=== PATIENT | male | born 2000 | race Caucasian/White ===

== ENCOUNTER 2020-08-23 18:08 | Emergency (ER) | payer OTHER ==
[~2020-08-23] VITALS: Ht 188 cm; Wt 77.0 kg
[2020-08-23] MEDS ORDERED: ACETAMINOPHEN 325 MG TAB PO ONE (21:15)
--- OUTSIDE RECORDS SUMMARY | 2020-08-23 21:40 | CCD ---
Author Author [facility] Organization [facility] Address Unknown Phone Unavailable Support Name Relationship Address Phone [facility] Next Of Kin [address] [place] [address] Unavailable BRANDON BARTHOLOMEW Next Of Kin GENNYK GELACIO PATEL Re-disclosure Warning The records that you are about to access may contain information from federally-assisted alcohol or drug abuse programs. If such information is present, then the following federally mandated warning applies: This information has been disclosed to you from records protected by federal confidentiality rules (42 CFR part 2). The federal rules prohibit you from making any further disclosure of this information unless further disclosure is expressly permitted by the written consent of the person to whom it pertains or as otherwise permitted by 42 CFR part 2. A general authorization for the release of medical or other information is NOT sufficient for this purpose. The Federal rules restrict any use of the information to criminally investigate or prosecute any alcohol or drug abuse patient.The records that you are about to access may contain highly sensitive health information, the redisclosure of which is protected by Article 27-F of the [facility] Public Health law. If you continue you may have access to information: Regarding HIV / AIDS; Provided by facilities licensed or operated by the [facility] Office of Mental Health; or Provided by the [facility] Office for People With Developmental Disabilities. If such information is present, then the following [facility] mandated warning applies: This information has been disclosed to you from confidential records which are protected by state law. State law prohibits you from making any further disclosure of this information without the specific written consent of the person to whom it pertains, or as otherwise permitted by law. Any unauthorized further disclosure in violation of state law may result in a fine or fci sentence or both. A general authorization for the release of medical or other information is NOT sufficient authorization for further disc losure. Insurance Providers Payer name Policy type / Coverage type Policy ID Covered alliance party ID Covered alliance party's relationship to esparza Policy Esparza Plan Information [employer] [id number]
[2020-08-23 21:42] LABS: BASO % 0.4 % (0.0-1.0); EOS # 0.1 10^3/uL (0.0-0.5); EOS % 1.2 % (0.0-3.0); HEMATOCRIT 45.7 % (42.0-52.0); HEMOGLOBIN 15.1 g/dl (13.5-17.5); LYMPH # 1.9 10^3/uL (1.5-5.0); LYMPH % 22.2 % (24.0-44.0); MEAN CORPUSCULAR HEMOGLOBIN 29.2 pg (27.0-33.0); MEAN CORPUSCULAR VOLUME 88.4 fl (80.0-96.0); MONO # 0.9 10^3/uL (0.0-0.8); MONO % 10.4 % (2.0-8.0); NEUTROPHILS # 5.5 10^3/uL (1.5-8.5); NEUTROPHILS % 65.7 % (36.0-66.0); PLATELET COUNT, AUTOMATED 277 10^3/uL (150-450); RED BLOOD COUNT 5.17 10^6/uL (4.30-6.10); WHITE BLOOD COUNT 8.4 10^3/uL (4.0-10.0)
--- NOTE | 2020-08-23 22:06 | REPVR ---
PROCEDURE INFORMATION: Exam: XR Chest, 2 Views Exam date and time: 08/23/2020 9:24 PM Age: 20 years old Clinical indication: Cough and dyspnea; Additional info: Dyspnea/cough TECHNIQUE: Imaging protocol: XR of the chest Views: 2 views. COMPARISON: No relevant prior studies available. FINDINGS: Lungs: Unremarkable. No consolidation. Pleural spaces: Unremarkable. No pleural effusion. No pneumothorax. Heart/Mediastinum: Unremarkable. No cardiomegaly. Bones/joints: Unremarkable. IMPRESSION: No acute findings. Electronically signed by: Henry Fritz On 08/23/2020 22:07:04 PM
[2020-08-23 22:08] LABS: BLOOD UREA NITROGEN 9 MG/DL (7-18); CALCIUM LEVEL 9.6 MG/DL (8.5-10.1); CARBON DIOXIDE LEVEL 28 MEQ/L (21-32); CHLORIDE LEVEL 104 MEQ/L (98-107); CREATININE FOR GFR 1.01 MG/DL (0.70-1.30); GLUCOSE, FASTING 85 MG/DL (70-100); POTASSIUM SERUM 3.8 MEQ/L (3.5-5.1); SODIUM LEVEL 140 MEQ/L (136-145)
[2020-08-23] MEDS ORDERED: CLAR10CA3 PO (22:17)
[2020-08-23] MEDS ORDERED: IBUP-1022 PO (22:17)
[2020-08-23 22:24] VITALS: BP 138/65
== END 2020-08-23 22:34 | disposition home or self-care (01) ==
LOC: M ED 18:08
DX: B34.8 Other viral infections of unspecified site (principal); F17.200 Nicotine dependence, unspecified, uncomplicated

== ENCOUNTER 2020-08-29 20:46 | Inpatient (IN) | payer OTHER ==
[~2020-08-29] VITALS: Ht 185.4 cm; Wt 73.5 kg
[~2020-08-29 20:46] MED LIST: CLAR10CA3 PO; IBUP-1022 PO
[2020-08-29 22:18] LABS: HEMATOCRIT 41.3 % (42.0-52.0); HEMOGLOBIN 13.4 g/dl (13.5-17.5); MEAN CORPUSCULAR HEMOGLOBIN 28.6 pg (27.0-33.0); MEAN CORPUSCULAR HGB CONC 32.4 g/dl (32.0-36.5); MEAN CORPUSCULAR VOLUME 88.1 fl (80.0-96.0); PLATELET COUNT, AUTOMATED 259 10^3/uL (150-450); RED BLOOD COUNT 4.69 10^6/uL (4.30-6.10); WHITE BLOOD COUNT 7.9 10^3/uL (4.0-10.0)
[2020-08-29 22:44] LABS: AMPHETAMINES LEVEL URINE NEGATIVE (NEGATIVE); BARBITURATES URINE NEGATIVE (NEGATIVE); BENZODIAZEPINES URINE NEGATIVE (NEGATIVE); CANNABINOIDS URINE NEGATIVE (NEGATIVE); COCAINE METABOLITE URINE NEGATIVE (NEGATIVE); METHADONE URINE NEGATIVE (NEGATIVE); OPIATES URINE NEGATIVE (NEGATIVE); PHENCYCLIDINE URINE NEGATIVE (NEGATIVE)
[2020-08-29 22:55] LABS: ACETAMINOPHEN LEVEL < 2.0 UG/ML (10.0-30.0); ALBUMIN 4.4 GM/DL (3.2-5.2); ALT/SGPT 23 U/L (12-78); BILIRUBIN,DIRECT < 0.1 MG/DL (0.0-0.2); BILIRUBIN,TOTAL 0.3 MG/DL (0.2-1.0); BLOOD UREA NITROGEN 9 MG/DL (7-18); CARBON DIOXIDE LEVEL 29 MEQ/L (21-32); CHLORIDE LEVEL 107 MEQ/L (98-107); CREATININE FOR GFR 0.43 MG/DL (0.70-1.30); ETHYL ALCOHOL (ETHANOL) 0.003 % (0.000-0.010); GLUCOSE, FASTING 76 MG/DL (70-100); SALICYLATE LEVEL < 1.7 MG/DL (5.0-30.0); SODIUM LEVEL 142 MEQ/L (136-145); TOTAL PROTEIN 7.7 GM/DL (6.4-8.2)
[2020-08-29 23:00] LABS: RSV AMPLIFICATION NEGATIVE (NEGATIVE)
[2020-08-30] MEDS ORDERED: MOM 30ML SUSPENSION UDC PO PRN (14:50)
[2020-08-30] MEDS ORDERED: MAALOX 30 ML SUSP *UDC PO PRN (14:50)
[2020-08-30 19:04] VITALS: BP 140/80
[2020-08-31 06:21] VITALS: BP 122/58
--- NOTE | 2020-08-31 14:15 | ECGEPIP ---
[facility] - ED Test Date: 2020-08-30 Pat Name: Gee Corea Department: Room: - Gender: Male Family Practice Nurse Practitioner: EARLENE : 2000 Requested By: CURTIS Donnelly Order Number: [id number] Reading MD: Jerrica Friend Measurements Intervals [place] Rate: 56 P: 45 HI: 180 QRS: 82 QRSD: 98 T: 55 QT: 420 QTc: 405 Interpretive Statements Sinus bradycardia early repolarization no prior Electronically Signed on 08-31-2020 14:15:38 EST by Jerrica Friend
--- NOTE | 2020-08-31 14:30 | HPEPDOC ---
General Date of Admission Aug 30, 2020 at 14:50 Date of Service: Aug 31, 2020 Attending Physician: BONG SOLOMON MD Chief Complaint The patient is a 20-year-old male admitted with a reason for visit of Major Depressive Disorder. 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 Melo referred him for evaluation. On initial evaluation, he was hemodynamically stable, afebrile, breathing comfortably on room air, alert and oriented x 3 and expressing that he did nothing wrong or to warrant admission to mental health. He did express later that being in the has been detrimental to his health, especially mental health and he has poor sleep, poor PO, poor anger management skills and is making him "snap." He otherwise denies a history of chronic illnesses or medications. He reports a recent URI for which he presented for a viral syndrome and he was covid-19 negative. Internal medicine was consulted for medical evaluation. Home Medications No Active Prescriptions or Reported Meds Allergies Coded Allergies: No Known Allergies (Unverified , 08/23/20) Past Medical History Medical History Chart mention of bipolar personality disorder History of suicidal gestures Surgical History None Family History Significant Family History: No pertinent family hx Social History * Smoker: Denies Alcohol: Denies Drugs: denies Recent Travel/Sick Contacts: Denies: Recent travel, Recent sick contacts Active pursuing medical discharge A-FIB/CHADSVASC A-FIB History Current/History of A-Fib/PAF?: No Current PO Anticoag Therapy: No Age/Risk Factor Scoring CHADSVASC: CHADSVASC Response (Comments) Value Age Risk Factor Age < 65 years old 0 Gender Risk Factor Male 0 Hx of CHF No 0 Hx of HTN No 0 Hx of Stroke/TIA/or VTE No 0 Hx of Diabetes No 0 Hx of Vascular Disease No 0 Total 0 Treatment Treatment ordered: NONE Reason Anticoagulant not given: Not indicated/[id number] Review of Systems Constitutional: Denies: Chills, Fever, Night Sweats Eyes: Denies: Pain, Vision change ENT: Denies: Head Aches, Ear Pain, Dysphagia Skin: Denies: Rash, Lesions, Breakdown Pulmonary: Denies: Dyspnea, Cough Cardiovascular: Denies: Chest Pain, Palpitations, Orthopnea, Paroxysmal Noc. Dyspnea, Lt Headedness Gastrointestinal: Denies: Nausea, Vomiting, Abdominal Pain, Diarrhea Genitourinary: Denies: Dysuria, Frequency, Incontinence, Retention Hematologic: Denies: Bruising, Bleeding Excessively Endocrine: Denies: Polydipsia, Polyphagia, Polyuria, Heat Intolerance, Cold Intolerance, Other Endocrine Sx Musculoskeletal: Reports: Back Pain (sometimes); Denies: Neck Pain, Joint Pain, Muscle Pain, Spasms Neurological: Denies: Weakness, Numbness, Change in speech, Confusion Psych: Reports: Mood Normal, Depression, Anger (sometimes, reports short temper since joining the ); Denies: Memory Issues, Thoughts of Self Harm Physical Examination General Exam: Positive: Alert, No Acute Distress Eye Exam: Negative: PERRLA, Conjunctiva & lids normal, EOMI, Sclera icteric, Ptosis, Other Eye Symptoms ENT Exam: Positive: Atraumatic, Mucous membr. moist/pink, Pharynx Normal Neck Exam: Positive: Supple; Negative: JVD, thyromegaly Chest Exam: Positive: Clear to auscultation, Normal air movement Heart Exam: Positive: Rate Normal, Regular Rhythm, Normal S1, Normal S2; Negative: Murmurs, Rubs Telemetry: Positive: No significant arrhythmia Abdomen Exam: Positive: Normal bowel sounds, Soft; Negative: Tenderness, Hepatospenomegaly Extremity Exam: Positive: Normal pulses; Negative: Clubbing, Cyanosis, Edema Skin Exam: Positive: Nl turgor and temperature; Negative: Breakdown, Lesion Neuro Exam: Positive: Normal Gait, Normal Speech, Cranial Nerves 3-12 NL, Reflexes 2+ Psych Exam: Positive: Mental status NL, Mood NL, Oriented x 3 Vital Signs Vital Signs Date Time Temp Pulse Resp B/P (MAP) Pulse Ox O2 Delivery O2 Flow Rate FiO2 08/31/20 06:21 98.8 74 16 122/58 (79) 99 Room Air 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 Depression with suicidal gesture on social media i/s/o of stress -per primary psychiatry team He otherwise has no other noted medical problems at this time. Internal medicine will sign off at this time. Plan / VTE VTE Prophylaxis Ordered?: No VTE Exclusion Mechanical Proph: Low Risk for VTE VTE Exclusion Pharmacological: At Low Risk for VTE BONG SOLOMON MD Aug 31, 2020 14:30
--- NOTE | 2020-08-31 15:00 | MHHPEPDOC ---
General Date Of Admission: Aug 31, 2020 Legal Status: 9.39 Chief Complaint "20-year-old male who has posted videos and tick tok stating that a gun in my hand, would anyone stop me. He has been hospitalized in the past. 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 He states, "I don't know why I'm here." Patient was hospitalized in [place] for 2 weeks for suicidal ideation, denies that this is true. Patient states he was there because his grandmother told him to kill himself. He was referred to us from [place]. His safety worker was notified about his video. He has had poor sleep for a couple of weeks he has had a history of depression and anxiety in the emergency room. He was seen as "making random elaborate statements being excessive and contradictory. Ge Martini who have the patient does not know is the marine safety officer who works with the psychologist. It was reported concerning having a knife at his neck. The patient denies. The patient states, "I need to get out of the high school education. 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 He is from [place]. He left [place] in August 2017. His mother and father are still alive. He states he has 2 uncles with PTSD. He has 4 brothers. He denies drug use, legal problems, alcohol problems or history of abuse. He denies mood swings, although recent some depression. He denies suicide attempts. Denies suicidal statements. He denies homicidal statements. He states he is engaged to a woman named Sayda from [facility]. He met her in [facility] a year ago. Denies auditory hallucinations, visual hallucinations, but he is mildly fearful of one of the soldiers in his dormitory. He denies obsessions, compulsions and phobias. He states this other soldier, Jose Luis would hurt him and that Jose Luis yells at him.. History of Present Illness HISTORY OF THE PRESENT ILLNESS: Patient is a 20 -year-old , male, who made tik tock videos with suicidal ideation. See history chief complaint above. Psychiatric Review of Systems Depression (2 or more weeks): denies Yari (4 or more days of): denies Psychosis: denies Anxiety: denies Anxiety/ 6 months or more of: restlessness, keyed up Past Psychiatric History Previous Psychiatric Diagnosis: 2 week hospitalization in [place] for suicidal ideation. Patient denies that his true. Previous Psychiatric Admissions: As above. Suicide Attempts: Ideation. Psychiatric Follow-up: [facility]. Psychiatric medications:. No medication. Past Medical History Medical Problems No medical disorders Head Injury: No Seizures: No Hospitalizations: No Surgeries: No Family Medical/Psychiatric HX Psychiatric Disorders: No Addiction: No Suicide Attemps/Completions: No Addiction History denies Social History Childhood: Noncontributory. As of now. Abuse/Trauma: Noncontributory. Current Living Situation: [place] Education: High school. Employment: [employer]. Social Support: Family in [place]. Legal:. None. Marital: Single. Mental Status Examination General Appearance: unkempt Demeanor: average Eye Contact: average Activity: average Behavior: cooperative Speech: clear Mood: euthymic Mood fair Affect: full Thought Process: other Thought Content (Delusions): none reported Thought Content (Other): appears paranoid Thought Content (Aggressive): none reported Perception (Hallucinations): none reported Perception (Other): none reported Cognition (Impairment of): none reported Cognition(Intelligence Est.): average Oriented: Awake, Alert, Oriented times three Insight: poor Judgment: Poor Psychosis: Denies Diagnoses Depression, personality disorder A-FIB/CHADSVASC A-FIB History Current/History of A-Fib/PAF?: No Current PO Anticoag Therapy: No Age/Risk Factor Scoring CHADSVASC: CHADSVASC Response (Comments) Value Age Risk Factor Age < 65 years old 0 Gender Risk Factor Male 0 Hx of CHF No 0 Hx of HTN No 0 Hx of Stroke/TIA/or VTE No 0 Hx of Diabetes No 0 Hx of Vascular Disease No 0 Total 0 Treatment Treatment ordered: NONE Initial Treatment Plan 1. Patient was admitted on a [9.39] status. 2. Complete history was obtained. 3. With patients permission, family will be contacted and database will be expanded. 4. Patients medication regimen will be reviewed and changed accordingly. 5. Patient will be provided with protected environment. 6. Patient will be treated with individual, group, and milieu therapies. 7. Patient will receive supportive psych-education. 8. Discharge planning will commence immediately. 9. Outpatient follow-up treatment will be strongly recommended. 10. The initial treatment plan will focus initially on: * Depression. * Risk for suicide. ESTIMATED LENGTH OF STAY: - DAYS. TIME SPENT COUNSELING AND COORDINATING INITIAL CARE: minutes. Vital Signs Vital Signs Date Time Temp Pulse Resp B/P (MAP) Pulse Ox O2 Delivery O2 Flow Rate FiO2 08/31/20 06:21 98.8 74 16 122/58 (79) 99 Room Air Medications No Active Prescriptions or Reported Meds Allergies Coded Allergies: No Known Allergies (Unverified , 08/23/20) SALLIE XIONG MD Aug 31, 2020 15:00
[2020-08-31 16:26] VITALS: BP 135/76
[2020-08-31] MEDS: traZODone 50 MG TAB PO PRN (20:22)
[2020-08-31] MEDS: ACETAMINOPHEN TAB 650MG DOSE (2X325MG) PO PRN (20:22)
[2020-09-01 06:29] VITALS: BP 117/56
[2020-09-01 17:18] VITALS: BP 112/64
--- NOTE | 2020-09-01 17:44 | MHIPNPDOC ---
[facility] Progress Note Progress Note DATE OF SERVICE: 09/01/20 HISTORY: Gee discussed his various tic tok videos and stated that they were misinterpreted because of the music that was playing. his recollections and port rayal of events do not in any way match the reported information VITAL SIGNS: See below. NEW TEST RESULTS: None. CURRENT MEDICATIONS: See below. MENTAL STATUS EXAMINATION: Patient is a 20-year old male, who is in good mood. Speech: Is. Normal. Language skills are gross disturbance. Thought processes including:. No gross disturbance. Thought content: No gross disturbance. Abstract reasoning, and computation:. No gross disturbance. Description of associations:, No loose association. Description of abnormal or psychotic thoughts:. No psychotic thought. Judgment:, Poor. Insight:, Limited. Orientation: 3. Recent and remote memory: Intact, but patient confabulates. Attention span and concentration: Intact. Language: No gross disturbance. Fund of knowledge:, Reasonable. Mood: Good. Affect: Bright. DIAGNOSES: 1. Depression. 2., Personality disorder. 3. None. ASSESSMENT: As above MANAGEMENT PLAN: Plan to seek more information. TIME SPENT: 35 minutes. Vital Signs Vital Signs Date Time Temp Pulse Resp B/P (MAP) Pulse Ox O2 Delivery O2 Flow Rate FiO2 09/01/20 17:18 98.6 71 18 112/64 (80) 09/01/20 06:29 99 Room Air Current Medications Current Medications Medications (Trade) Dose Ordered Sig/Kaleb Route PRN Reason Start Time Stop Time Status Last Admin Dose Admin Acetaminophen (Tylenol Tab) 650 mg Q6HP PRN PO HEADACHE or DISCOMFORT 08/30/20 14:50 08/31/20 20:22 Al Hydrox/Mg Hydrox/Simethicone (Mylanta) 30 ml Q4HP PRN PO HEARTBURN/INDIGESTION 08/30/20 14:50 Home Med (Med Rec Complete!) ASDIRECTED XX 08/30/20 13:40 08/30/20 13:45 DC Magnesium Hydroxide (Milk Of Magnesia) 30 ml DAILYPRN PRN PO CONSTIPATION 08/30/20 14:50 Trazodone HCl (Desyrel) 50 mg QHSP PRN PO INSOMNIA 08/30/20 14:50 08/31/20 20:22 Allergies Coded Allergies: No Known Allergies (Unverified , 08/23/20) SALLIE XIONG MD Sep 01, 2020 17:44
[2020-09-01] MEDS: traZODone 50 MG TAB PO PRN (20:05)
[2020-09-02 05:55] VITALS: BP 122/62
[2020-09-02 16:41] VITALS: BP 138/85
--- NOTE | 2020-09-02 17:08 | MHIPNPDOC ---
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 VITAL SIGNS: See below. NEW TEST RESULTS: None. CURRENT MEDICATIONS: See below. MENTAL STATUS EXAMINATION: Patient is a. 20-year old male, who is. Apparently noncompliant with treatment at [facility]. Speech: Is slightly rapid. Language skills are disturbance. Thought processes including: Need to apologize. According to patient. Thought content:, Repetitive statements of his need to apologize. Abstract reasoning, and computation: Present. Description of associations:. No loose association. Description of abnormal or psychotic thoughts:. No psychotic thought. Judgment:, Poor. Insight:, Poor. Orientation: 3. Recent and remote memory: Intact. Attention span and concentration:. Poor. Language:. No gross disturbance. Fund of knowledge:. Reasonable. Mood: Good, if not a bit elevated. Affect: Perhaps a bit too bright. DIAGNOSES: 1. Depression by history. 2.. Rule out bipolar disorder. 3., Noncompliance with treatment. ASSESSMENT: As above should be observed for more serious mood disorder MANAGEMENT PLAN: Return to base. TIME SPENT: 35 minutes. Vital Signs Vital Signs Date Time Temp Pulse Resp B/P (MAP) Pulse Ox O2 Delivery O2 Flow Rate FiO2 09/02/20 16:41 98.4 75 16 138/85 (102) 97 Room Air Current Medications Current Medications Medications (Trade) Dose Ordered Sig/Kaleb Route PRN Reason Start Time Stop Time Status Last Admin Dose Admin Acetaminophen (Tylenol Tab) 650 mg Q6HP PRN PO HEADACHE or DISCOMFORT 08/30/20 14:50 08/31/20 20:22 Al Hydrox/Mg Hydrox/Simethicone (Mylanta) 30 ml Q4HP PRN PO HEARTBURN/INDIGESTION 08/30/20 14:50 Home Med (Med Rec Complete!) ASDIRECTED XX 08/30/20 13:40 08/30/20 13:45 DC Magnesium Hydroxide (Milk Of Magnesia) 30 ml DAILYPRN PRN PO CONSTIPATION 08/30/20 14:50 Trazodone HCl (Desyrel) 50 mg QHSP PRN PO INSOMNIA 08/30/20 14:50 09/01/20 20:05 Allergies Coded Allergies: No Known Allergies (Unverified , 08/23/20) SALLIE XIONG MD Sep 02, 2020 17:08
[2020-09-03 06:31] VITALS: BP 109/53
[2020-09-03 16:17] VITALS: BP 116/70
--- NOTE | 2020-09-03 17:35 | MHIPNPDOC ---
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 VITAL SIGNS: See below. NEW TEST RESULTS: None. CURRENT MEDICATIONS: See below. MENTAL STATUS EXAMINATION: Patient is a. 20-year old male, who is. Apparently noncompliant with treatment at [facility]. Speech: Is normal in r/t/v, spontaneous and fluent Language skills are fair Thought processes including: linear though not necessarily coherent, he perseverates about him saving 32 kids who were thinking about killing themselves Thought content:, Repetitive statements of his need to apologize. Abstract reasoning, and computation: fair Description of associations:. No loose association. Description of abnormal or psychotic thoughts: Denies thought delusions, denies TAV hallucinations, he is not responding to internal stimuli Judgment:, Poor. Insight: Poor. Orientation: 3. Recent and remote memory: Intact. Attention span and concentration: Poor. Language:. No gross disturbance. Fund of knowledge:. Reasonable. Mood: Good Affect: Congruent with mood, full, reactive DIAGNOSES: 1. Depression by history. 2. Rule out bipolar disorder. 3. Noncompliance with treatment. ASSESSMENT: I agree with Dr. Sevilla, I think the possibility of Bipolar disorder should be considered. MANAGEMENT PLAN: Return to base. TIME SPENT: 35 minutes. Vital Signs Vital Signs Date Time Temp Pulse Resp B/P (MAP) Pulse Ox O2 Delivery O2 Flow Rate FiO2 09/03/20 16:17 98.2 60 18 116/70 (85) 99 Room Air Current Medications Current Medications Medications (Trade) Dose Ordered Sig/Kaleb Route PRN Reason Start Time Stop Time Status Last Admin Dose Admin Acetaminophen (Tylenol Tab) 650 mg Q6HP PRN PO HEADACHE or DISCOMFORT 08/30/20 14:50 08/31/20 20:22 Al Hydrox/Mg Hydrox/Simethicone (Mylanta) 30 ml Q4HP PRN PO HEARTBURN/INDIGESTION 08/30/20 14:50 Home Med (Med Rec Complete!) ASDIRECTED XX 08/30/20 13:40 08/30/20 13:45 DC Magnesium Hydroxide (Milk Of Magnesia) 30 ml DAILYPRN PRN PO CONSTIPATION 08/30/20 14:50 Trazodone HCl (Desyrel) 50 mg QHSP PRN PO INSOMNIA 08/30/20 14:50 3/4/21 20:05 Allergies Coded Allergies: No Known Allergies (Unverified , 08/23/20) RAQUEL CHANCE MD Sep 03, 2020 17:31
[2020-09-03] MEDS: traZODone 50 MG TAB PO PRN (21:22)
[2020-09-04 06:39] VITALS: BP 117/55
[2020-09-04 16:16] VITALS: BP 140/89
[2020-09-04] MEDS: traZODone 50 MG TAB PO PRN (21:59)
[2020-09-04] MEDS: BISACODYL 5 MG TAB PO SCH (21:59)
[2020-09-05 06:54] VITALS: BP 136/83
[2020-09-05] MEDS: BISACODYL 5 MG TAB PO SCH ×2 (08:32→20:32)
--- NOTE | 2020-09-05 14:58 | MHIPNPDOC ---
[facility] Progress Note Progress Note DATE OF SERVICE: 09/05/20 HISTORY: 20-year-old male made suicidal statements and tic camelia. Somewhat personality disordered and even slightly questionably hypomanic. VITAL SIGNS: See below. NEW TEST RESULTS:, None. CURRENT MEDICATIONS: See below. MENTAL STATUS EXAMINATION: Patient is a 20-year old male, who is's stating. He is apologizing for his behavior. Speech: Is no gross disturbance. Language skills are. No gross disturbance. Thought processes including:. No gross disturbance. Thought content: Apologetic. Abstract reasoning, and computation: Intact. Description of associations:. No loose association. Description of abnormal or psychotic thoughts:. No psychotic thought. Judgment: Poor. Insight:, Limited. Orientation: 3. Recent and remote memory: Intact. Attention span and concentration:. No gross disturbance. Language:. No gross disturbance. Fund of knowledge: Reasonable. Mood: Good. Affect: Bright. DIAGNOSES: 1. Depression. 2., Personality disorder. 3., Rule out hypomania. ASSESSMENT: As above MANAGEMENT PLAN:. Discharge tomorrow. TIME SPENT:, 35 minutes. Vital Signs Vital Signs Date Time Temp Pulse Resp B/P (MAP) Pulse Ox O2 Delivery O2 Flow Rate FiO2 09/05/20 06:54 97.9 64 16 136/83 (100) 99 Room Air Current Medications Current Medications Medications (Trade) Dose Ordered Sig/Kaleb Route PRN Reason Start Time Stop Time Status Last Admin Dose Admin Acetaminophen (Tylenol Tab) 650 mg Q6HP PRN PO HEADACHE or DISCOMFORT 08/30/20 14:50 08/31/20 20:22 Al Hydrox/Mg Hydrox/Simethicone (Mylanta) 30 ml Q4HP PRN PO HEARTBURN/INDIGESTION 08/30/20 14:50 Bisacodyl (Dulcolax Tab) 10 mg BID PO 09/04/20 21:00 09/06/20 22:00 09/04/20 21:59 Bisacodyl (Dulcolax Tab) 10 mg BIDP PRN PO CONSTIPATION 09/07/20 00:00 Home Med (Med Rec Complete!) ASDIRECTED XX 08/30/20 13:40 08/30/20 13:45 DC Magnesium Hydroxide (Milk Of Magnesia) 30 ml DAILYPRN PRN PO CONSTIPATION 08/30/20 14:50 Trazodone HCl (Desyrel) 50 mg QHSP PRN PO INSOMNIA 08/30/20 14:50 09/04/20 21:59 Allergies Coded Allergies: No Known Allergies (Unverified , 08/23/20) SALLIE XIONG MD Sep 05, 2020 14:58
[2020-09-05 17:55] VITALS: BP 132/85
[2020-09-05] MEDS: traZODone 50 MG TAB PO PRN (20:32)
[2020-09-05] MEDS: ACETAMINOPHEN TAB 650MG DOSE (2X325MG) PO PRN (21:31)
[2020-09-06] MEDS ORDERED: TRAZ-252 PO (06:39)
[2020-09-06 06:48] VITALS: BP 112/54
--- NOTE | 2020-09-06 07:11 | MHDSPDOC ---
[facility] Discharge Summary Discharge Summary DATE OF ADMISSION: Aug 30, 2020 at 14:50 DATE OF DISCHARGE: August DISCHARGE DIAGNOSES: 1. Adjustment disorder with depressed mood. 2., Personality disorder, cluster. REASON FOR ADMISSION: "20-year-old male who has posted videos and tick tok stating that a gun in my hand, would anyone stop me. He has been hospitalized in the past. 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 He states, "I don't know why I'm here." Patient was hospitalized in [place] for 2 weeks for suicidal ideation, denies that this is true. Patient states he was there because his grandmother told him to kill h imself. He was referred to us from [place]. His safety worker was notified about his video. He has had poor sleep for a couple of weeks he has had a history of depression and anxiety in the emergency room. He was seen as "making random elaborate statements being excessive and contradictory. Ge Martini who have the patient does not know is the product safety consultant who works with the psychologist. It was reported concerning having a knife at his neck. The patient denies. The patient states, "I need to get out of the high school education. 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 He is from [place]. He left [place] in August 2017. His mother and father are still alive. He states he has 2 uncles with PTSD. He has 4 brothers. He denies drug use, legal problems, alcohol problems or history of abuse. He denies mood swings, although recent some depression. He denies suicide attempts. Denies suicidal statements. He denies homicidal statements. He states he is engaged to a woman named Sayda from [facility]. He met her in [facility] a year ago. Denies auditory hallucinations, visual hallucinations, but he is mildly fearful of one of the soldiers in his dormitory. He denies obsessions, compulsions and phobias. He states this other soldier, Jose Luis would hurt him and that Jose Luis yells at him.. CONSULTANTS INVOLVED: None TREATMENT AND PROGRESS ON THE UNIT : Observation and discussion. Patient agreed about the drama and instigation of his behavior and agreed to apologize to everyone. HOSPITAL COURSE: Unremarkable DISCHARGE ASSESSMENT: His excessive, apologies, concern me about his personality, but for now, he will need follow-up and observation in an outpatient clinic MENTAL STATUS EXAMINATION ON DISCHARGE: Patient is a 20-year old male, who is admitted following posting suicidal videos. Speech is. No gross disturbance. Language skills are intact. Thought processes including: Excessive apology. Thought content: As above. Abstract reasoning, and computation:, Limited. Description of associations:, No loose associations. Description of abnormal or psychotic thoughts:. No psychotic thought. Judgment: Poor. Insight:, Poor. Orientation to 3. Recent and remote memory: Intact. Attention span and concentration: Intact. Language:. No gross disturbance. Fund of knowledge: Reasonable. Mood: Good. Affect:, Congruent. MEDICATIONS ON DISCHARGE: -Trazodone 50 mg for sleep. - - PLAN/FOLLOWUP ARRANGEMENTS: Per chain of command. The amount of time spent in the coordination of care for this patient was approximately 35 minutes. ETOH/Disorder Med Rx ETOH/DRUG DISORDER RX: N/A Vital Signs/I&Os Vital Signs Date Time Temp Pulse Resp B/P (MAP) Pulse Ox O2 Delivery O2 Flow Rate FiO2 09/06/20 06:48 98.3 51 20 112/54 (73) 100 Room Air Medications Scheduled PRN Trazodone HCl (Trazodone HCl) 50 Mg Tablet, 50 MG PO QHSP PRN for INSOMNIA, #10 Allergies Coded Allergies: No Known Allergies (Unverified , 08/23/20) SALLIE XIONG MD Sep 06, 2020 07:11
[2020-09-06] MEDS: BISACODYL 5 MG TAB PO SCH (08:51)
[2020-09-07] MEDS ORDERED: BISACODYL 5 MG TAB PO PRN
== END 2020-09-06 10:38 | disposition home or self-care (01) | DRG 881 ==
LOC: M ED 20:46 → M ED INP 08-30 14:50 → M PSY 08-30 16:58
PROVIDERS: ADMIT Psychiatry & Neurology Child & Adolescent Psychiatry; ATTEND Psychiatry & Neurology Child & Adolescent Psychiatry
DX: F43.21 Adjustment disorder with depressed mood (principal); F60.89 Other specific personality disorders; Z81.8 Family history of other mental and behavioral disorders; Z91.19 Patient's noncompliance with other medical treatment and regimen

== ENCOUNTER 2020-11-22 10:44 | Emergency (ER) | payer OTHER ==
[~2020-11-22] VITALS: Ht 185.4 cm; Wt 72.7 kg
[~2020-11-22 10:44] MED LIST changes: +TRAZ-252 PO
[2020-11-22] MEDS ORDERED: LIDO5DIS41 TOP (10:50)
[2020-11-22] MEDS ORDERED: MELO7.5T35 PO (11:19)
--- NOTE | 2020-11-22 11:57 | REP ---
INDICATION: remote trauma, low back pain since COMPARISON: None. TECHNIQUE: AP, lateral, bilateral oblique, and coned-down views of the lumbar spine. FINDINGS: Alignment and lordosis maintained. Vertebral bodies are intact. No acute fracture/compression injury or subluxation. No obvious spondylolysis or spondylolisthesis.. Very minimal endplate sclerosis and disc space narrowing at L5-S1 should be correlated clinically. IMPRESSION: Mild disc space narrowing at L5-S1 suggested. <Electronically signed by Mike Huber > 11/22/20 [id number]
[2020-11-22] MEDS ORDERED: MEDR4PAK PO (12:17)
[2020-11-22] MEDS ORDERED: CYCL-707 PO (12:17)
[2020-11-22 12:21] VITALS: BP 130/87
== END 2020-11-22 12:26 | disposition home or self-care (01) ==
LOC: M ED 10:44
DX: M54.5 Low back pain (principal); G89.29 Other chronic pain

== ENCOUNTER 2021-02-04 17:04 | Emergency (ER) | payer OTHER ==
[~2021-02-04] VITALS: Ht 185.4 cm; Wt 75.0 kg
[2021-02-04 17:04] VITALS: BP 135/79
[~2021-02-04 17:04] MED LIST changes: +CYCL-707 PO; +LIDO5DIS41 TOP; +MEDR4PAK PO; +MELO7.5T35 PO
[2021-02-04] MEDS ORDERED: GABA-1171 (17:15)
[2021-02-04] MEDS ORDERED: MIRT-60 (17:15)
[2021-02-04 18:10] LABS: RSV AMPLIFICATION NEGATIVE (NEGATIVE)
[2021-02-04] MEDS ORDERED: ONDANSETRON 4 MG ORAL DISINTEGRATING TAB PO ONE (18:25)
[2021-02-04] MEDS ORDERED: ACETAMINOPHEN 500 MG TAB PO ONE (18:25)
[2021-02-04] MEDS ORDERED: MUCI1TAB16 PO (18:30)
[2021-02-04] MEDS ORDERED: ACET-897 PO (18:33)
== END 2021-02-04 18:49 | disposition home or self-care (01) ==
LOC: M ED 17:04
DX: B34.9 Viral infection, unspecified (principal); J45.909 Unspecified asthma, uncomplicated; R56.9 Unspecified convulsions; K21.9 Gastro-esophageal reflux disease without esophagitis; F43.10 Post-traumatic stress disorder, unspecified; M54.9 Dorsalgia, unspecified; Z79.899 Other long term (current) drug therapy
CPT/HCPCS: 87631; 99282; Q0162